=== PATIENT | male | born 1990 | race African-American/Black ===

== ENCOUNTER 2018-08-11 16:57 | Emergency (ER) | payer SELFPAY ==
[2018-08-11] MEDS ORDERED: DIPH/PERTUSS(ACELL)/TETANUS VAC/PF 0.5 ML SYR (>=10YO) IM ONE (17:15)
[2018-08-11] MEDS ORDERED: MORPHINE SULFATE 10 MG/ML INJ IM ONE (17:20)
--- NOTE | 2018-08-11 17:27 | ER Document Report ---
ED General - General Chief Complaint: Finger Injury Stated Complaint: LEFT HAND INJURY Time Seen by Provider: 08/11/18 17:20 Mode of Arrival: Ambulatory Information source: Patient Notes: 28-year-old male presents with partial amputation of his left index finger after getting it closed in a door just prior to arrival. Tetanus unknown. Patient is right-handed. TRAVEL OUTSIDE OF THE [place] IN LAST 30 DAYS: No - HPI Onset: Just prior to arrival Onset/Duration: Sudden Quality of pain: Throbbing Severity: Severe Associated symptoms: None Exacerbated by: Movement Relieved by: Denies Similar symptoms previously: No Recently seen / treated by doctor: No - Related Data Allergies/Adverse Reactions: No Known Allergies Allergy (Verified 07/15/15 10:29) Past Medical History - General Information source: Patient - Social History Smoking Status: Current Every Day Smoker Cigarette use (# per day): Yes - 2 Frequency of alcohol use: None Drug Abuse: None Lives with: Family Family History: CAD, Hyperlipidemia, Hypertension Patient has suicidal ideation: No Patient has homicidal ideation: No - Medical History Medical History: Negative - Immunizations Immunizations up to date: No Hx Diphtheria, Pertussis, Tetanus Vaccination: No Review of Systems - Review of Systems Notes: REVIEW OF SYSTEMS: CONSTITUTIONAL : Denies fever, chills, or sweats. Denies recent illness. Denies weight loss, recent hospitalizations. EENT: Denies visual changes, eye pain. Denies sore throat, oral lesions, difficulty swallowing. CARDIOVASCULAR: Denies chest pain. Denies palpitations. Denies lower extremity edema. RESPIRATORY: Denies cough. Denies shortness of breath, wheezing. GASTROINTESTINAL: Denies abdominal pain or distention. Denies nausea, vomiting, or diarrhea. Denies blood in vomitus, stools, or per rectum. Denies black, tarry stools. Denies constipation. GENITOURINARY: Denies difficulty urinating, painful urination, frequency, blood in urine, testicular pain or penile discharge. MUSCULOSKELETAL: Denies back or neck pain or stiffness. Denies joint pain or swelling. SKIN: Denies rash, lesions or sores. HEMATOLOGIC : Denies easy bruising or bleeding. LYMPHATIC: Denies swollen glands. NEUROLOGICAL: Denies confusion or altered mental status. Denies loss of consciousness. Denies dizziness or lightheadedness. Denies headache. Denies weakness or paralysis. Denies problems difficulty with ambulation, slurred speech. Denies sensory loss, numbness, or tingling. Denies seizures. PSYCHIATRIC: Denies anxiety or stress. Denies depression, suicidal ideation, or Physical Exam - Vital signs Vitals: Temp Pulse Resp BP Pulse Ox 98.0 F 82 16 116/67 100 08/11/18 17:09 08/11/18 17:09 08/11/18 17:09 08/11/18 17:09 08/11/18 17:09 - Notes Notes: PHYSICAL EXAMINATION: GENERAL: Appears to be in significant pain. HEAD: Atraumatic, normocephalic. EYES: Pupils equal round and reactive to light, extraocular movements intact, sclera anicteric, conjunctiva are normal. ENT: Nares patent, oropharynx clear without exudates. Moist mucous membranes. NECK: Normal range of motion, supple without lymphadenopathy LUNGS: Breath sounds clear to auscultation bilaterally and equal. No wheezes rales or rhonchi. HEART: Regular rate and rhythm without murmurs ABDOMEN: Soft, nontender, nondistended abdomen. No guarding, no rebound. No masses appreciated. Musculoskeletal: Normal range of motion, no pitting or edema. No cyanosis. Left index finger-partial amputation of the distal phalanx with contused tissue, bone and tendon exposure. Sensation intact. NEUROLOGICAL: Cranial nerves grossly intact. Normal speech, normal gait. Normal sensory, motor exams PSYCH: Normal mood, normal affect. SKIN: Mangled, contused tissue of the left index finger. Course - Re-evaluation Re-evalutation: Hand X-Ray 08/11/18 17:14 IMPRESSION: Partial amputation of the distal left 2nd finger tip with absence of the distal tuft, 2nd finger distal phalanx. Temp Pulse Resp BP Pulse Ox 98.4 F 61 20 150/71 H 99 08/11/18 19:48 08/11/18 19:48 08/11/18 19:48 08/11/18 19:48 08/11/18 19:48 28-year-old male presents with a left finger laceration after having his finger closed into a door just prior to arrival. Vital signs reviewed upon arrival. Previous medical records and nursing notes reviewed. Patient does not appear toxic but he does appear to be in significant pain. X-ray obtained and showed partial amputation of the distal second finger right with absence of the distal tuft. 08/11/18 17:27 Dr. Childs contacted for consult. 08/11/18 17:31 Dr. Chilsd recommends Xeroform, compressive dressing and follow-up in the office on Tuesday. 08/11/18 19:14 Finger block of the left second digit was performed and wound was thoroughly irrigated with Betadine and 1 L of normal saline. Patient did receive Ancef, tetanus. Patient also placed in a finger splint. Patient be discharged home with Keflex and pain medication. Wound care instructions discussed with patient and family members. Patient was evaluated and treated as appropriate for the patient's presenting symptoms and complaint, with consideration of any critical or life threatening conditions that may be associated with their obtained history and exam as noted above. All results were discussed with patient and his family members.. Patient provided the opportunity to ask questions, and express concerns. Patient was educated on treatments based on their presumed diagnosis as noted above. At this time we will discharge the patient with return precautions and follow-up recommendations. Verbal discharge instructions given a the bedside. Medication warnings reviewed. Patient is in agreement with this plan and has verbalized understanding of return precautions. After careful consideration I feel that that patient can be safely discharged from the emergency department, they were advised to followup with a primary care physician in 2-3 days. Dictation on this chart was performed using voice recognition software and may result in unintended grammatical, spelling, syntax or errors. 08/11/18 23:29 - Vital Signs Vital signs: Temp Pulse Resp BP Pulse Ox 98.4 F 61 20 150/71 H 99 08/11/18 19:48 08/11/18 19:48 08/11/18 19:48 08/11/18 19:48 08/11/18 19:48 - Diagnostic Test Radiology reviewed: Image reviewed, Reports reviewed Procedures - Laceration/Wound Repair Left 2nd digit Time completed: 19:16 Wound length (cm): 3 Wound's Depth, Shape: Nail-avulsed, Contused tissue Laceration pre-procedure: Sterile PPE donned, Betadine prep applied Anesthetic type: 1% Lidocaine Volume Anesthetic (mLs): 5 - Digital block performed Wound explored: Clean, No foreign body removed Irrigated w/ Saline (mLs): 1,000 Wound Debrided: Minimal Wound Repaired With: Other - Quick clot, Xeroform and compressive bandage placed. Post-procedure NV exam normal: Yes Complications: No Hands back picture: 1 - Mangled tissue, bone exposure, sensation intact Critical Care Note - Critical Care Note Total time excluding time spent on procedures (mins): 35 - Minutes of critical care time spent in direct contact evaluating and reevaluating the patient, treating symptoms, reviewing labs and studies and speaking with family and consultants excluding any procedures Discharge - Discharge Clinical Impression: Partial traumatic transphalangeal amputation of left index finger Qualifiers: Encounter type: initial encounter Qualified Code(s): S68.621A - Partial traumatic transphalangeal amputation of left index finger, initial encounter Condition: Good Disposition: HOME, SELF-CARE Instructions: Fractured Finger ([facility]) Additional Instructions: You have a partial amputation of your left index finger. Please keep the dressing in place until you are seen by orthopedic surgery on Tuesday. Please elevate your arm and ice the area whenever possible. Please take your antibiotics and pain medication as prescribed. Prescriptions: Cephalexin Monohydrate [Keflex 500 mg Capsule] 500 mg PO BID 5 Days #10 capsule Oxycodone HCl/Acetaminophen [Percocet 5-325 mg Tablet] 1 tab PO Q6H PRN #20 tablet PRN Reason: Forms: Return to Work, Elevated Blood Pressure Referrals: REDD CHILDS MD [ACTIVE STAFF] - 08/14/18
[2018-08-11] MEDS ORDERED: LIDOCAINE 1% INJ (10 MG/ML) 10 ML MDV INJ ONE (17:31)
--- NOTE | 2018-08-11 17:50 | RADIOLOGY REPORT (SQ) ---
EXAM DESCRIPTION: HAND LEFT 3 VIEWS COMPLETED DATE/TIME: 08/11/2018 5:38 pm REASON FOR STUDY: finger amputation COMPARISON: None. EXAM PARAMETERS: NUMBER OF VIEWS: Three views. TECHNIQUE: AP, lateral and oblique radiographic images acquired of the left hand. LIMITATIONS: None. FINDINGS: MINERALIZATION: Normal. BONES: Partial amputation of the distal left 2nd finger tip with absence of the distal tuft, 2nd fing er distal phalanx. No worrisome bone lesions. JOINTS: No effusions. SOFT TISSUES: Partial soft tissue amputation of the distal left 2nd finger tip. No retained radiopaq ue foreign body. OTHER: No other significant finding. IMPRESSION: Partial amputation of the distal left 2nd finger tip with absence of the distal tuft, 2n d finger distal phalanx. TECHNICAL DOCUMENTATION: JOB ID: [id number] [employer]- All Rights Reserved Reading location - IP/workstation name: [email or web address]
[2018-08-11] MEDS ORDERED: LIDOCAINE 1% INJ-PF (10 MG/ML) 30 ML SDV ONE (18:48)
[2018-08-11] MEDS ORDERED: CEPHALEXIN 500 MG CAPSULE PO ONE (19:20)
[2018-08-11] MEDS ORDERED: OXYCODONE-ACETAMINOPHEN 5-325 MG TABLET PO ONE (19:20)
[2018-08-11 19:49] VITALS: BP 150/71
== END 2018-08-11 19:40 | disposition home or self-care (01) ==
LOC: ER 16:57
DX: S68.621A Partial traumatic transphalangeal amputation of left index finger, initial encounter (principal); W23.0XXA Caught, crushed, jammed, or pinched between moving objects, initial encounter; Y92.009 Unspecified place in unspecified non-institutional (private) residence as the place of occurrence of the external cause; F17.210 Nicotine dependence, cigarettes, uncomplicated; Z23 Encounter for immunization
CPT/HCPCS: 99285; 96372; 90471; 73130; 90715; 64450; J2270

== ENCOUNTER 2018-08-13 13:46 | Emergency (ER) | payer SELFPAY ==
[2018-08-13] MEDS ORDERED: LIDOCAINE 1% INJ-PF (10 MG/ML) 30 ML SDV INJ ONE (15:36)
[2018-08-13] MEDS ORDERED: CEFTRIAXONE INJ 1000 MG VIAL IM ONE (15:36)
[2018-08-13] MEDS ORDERED: MORPHINE SULFATE 10 MG/ML INJ IM ONE (16:31)
--- NOTE | 2018-08-13 17:46 | ER Document Report ---
ED Hand/Wrist Injury - General Mode of Arrival: Ambulatory TRAVEL OUTSIDE OF THE [place] IN LAST 30 DAYS: No - HPI Injury to: Index finger - Left Onset: Other - 2 days ago Where: Home Timing: Still present Quality of pain: Throbbing Severity: Severe Pain Level: 5 Context: Other - Being was traumatically amputated 2 days ago - General Chief Complaint: Finger Injury Stated Complaint: LEFT FINGER PAIN Time Seen by Provider: 08/13/18 15:06 Notes: 28-year-old male presented to ED for complaint of pain to his left index finger after injuring his finger 2 days ago. He states his end of his finger was cut off after it was slammed in a door 2 days ago. He was seen by Dr. Wells and discharged home with a sterile dressing on and prescriptions for Keflex and oxycodone. He states he never filled his prescriptions and the first he stated he had not changed his dressing as he was told not to. After I discussed it with him he said no as soon as he got home that night he took the dressing off and put a paper towel on it and now he was concerned that it was going to get infected as it was very painful. He is alert and oriented respirations regular and unlabored speaking in full sentences. He is here with a friend who will drive. (NERISSA SHARMA) - Related Data Allergies/Adverse Reactions: No Known Allergies Allergy (Verified 08/13/18 13:49) Past Medical History - General Information source: Patient - Social History Smoking Status: Current Every Day Smoker Cigarette use (# per day): Yes - 2 or 3 a day Chew tobacco use (# tins/day): No Smoking Education Provided: Yes - 4 minutes Frequency of alcohol use: None Drug Abuse: None Lives with: Family Family History: CAD, Hyperlipidemia, Hypertension Patient has suicidal ideation: No Patient has homicidal ideation: No - Past Medical History Cardiac Medical History: Reports: None Pulmonary Medical History: Reports: None EENT Medical History: Reports: None Neurological Medical History: Reports: None Endocrine Medical History: Reports: None Renal/ Medical History: Reports: None Malignancy Medical History: Reports None GI Medical History: Reports: None Musculoskeletal Medical History: Reports Other - Traumatic amputation of left distal index finger 2 days ago Skin Medical History: Reports None Psychiatric Medical History: Reports: None Traumatic Medical History: Reports: Hx Fractures - Traumatic amputation of the left index finger distal in Infectious Medical History: Reports: None Surgical Hx: Negative Past Surgical History: Reports: None Review of Systems - Review of Systems Constitutional: No symptoms reported EENT: No symptoms reported Cardiovascular: No symptoms reported Respiratory: No symptoms reported Gastrointestinal: No symptoms reported Genitourinary: No symptoms reported Male Genitourinary: No symptoms reported Musculoskeletal: Other - Traumatically amputated distal left index finger with mangled skin and bone visible Skin: Other - Open mangled distal fifth finger on left hand with bone exposure after dressing removed Hematologic/Lymphatic: No symptoms reported Neurological/Psychological: No symptoms reported -: Yes All other systems reviewed and negative Physical Exam - Vital signs Interpretation: Normal - General General appearance: Appears well, Alert - HEENT Head: Normocephalic, Atraumatic Eyes: Normal Pupils: PERRL - Respiratory Respiratory status: No respiratory distress Chest status: Nontender Breath sounds: Normal Chest palpation: Normal - Cardiovascular Rhythm: Regular Heart sounds: Normal auscultation Murmur: No - Abdominal Inspection: Normal Distension: No distension Bowel sounds: Normal Tenderness: Nontender Organomegaly: No organomegaly - Back Back: Normal, Nontender - Extremities General upper extremity: Normal ROM, Normal temperature General lower extremity: Normal inspection, Nontender, Normal color, Normal ROM, Normal temperature, Normal weight bearing. No: Romie's sign Shoulder: Normal, Nontender Arm: Normal, Nontender Elbow: Normal, Nontender Forearm: Normal, Nontender Wrist: Normal, Nontender Hand: No evidence of human bite, No evidence of FB, Other - Traumatic amputation to the distal phalanx of the left index finger with mangled contused skin and bone and tendon exposure after paper towel was soaked in warm soapy water to loosen it enough to remove it. - Neurological Neuro grossly intact: Yes Cognition: Normal Orientation: AAOx4 Benita Coma Scale Eye Opening: Spontaneous Benita Coma Scale Verbal: Oriented Benita Coma Scale Motor: Obeys Commands Benita Coma Scale Total: 15 Speech: Normal Motor strength normal: LUE, RUE, LLE, RLE Sensory: Normal - Psychological Associated symptoms: Normal affect, Normal mood - Skin Skin Temperature: Warm Skin Moisture: Dry Skin Color: Normal - Vital signs Vitals: Temp Pulse Resp BP Pulse Ox 98.6 F 82 18 158/91 H 96 08/13/18 13:50 08/13/18 13:50 08/13/18 13:50 08/13/18 13:50 08/13/18 13:50 Course - Re-evaluation Re-evalutation: 08/13/18 20:51 I went in and examined this young man and he had a paper towel wrapped around his left index finger where he had traumatically amputated it 2 days before. He states he came in here and was seen by the provider and when he went home he took the off the dressing that is been placed on it in the emergency room, he states he knows he was told not to remove it, but he thought he needed to so he removed it, and placed a paper towel on the end of his finger. He states he did not feel the antibiotics or the pain medicine because he did not think he would need. He states his pain has gotten worse so he became scared and came back to the emergency room. In order to treat this finger I medicated the patient with morphine IM and soaked his finger in warm soapy water. When I removed the dressing there was mangled contused skin that was red with tendons and bone exposure to the distal phalanx of the left index finger. I went over and spoke to Dr. Wells who had seen the patient 2 days ago I explained to her that the patient had taken her dressing off and put paper towel on I had soaked it in warm water and was able to get the paper towel off and what the skin looked like. She came over and examined the hand and then stated that I should call [place] again as the patient had taken the dressing off. At [address] Goff and he stated that he had not been called about her finger and he did not know anything about a finger being contused or amputated but if it was amputated 2 days ago and the patient had lasted this long he can wait till 8:00 in the morning at which time he should come to the [facility] for surgery and be examined. I explained to him that the patient had taken the dressing off and it put paper towels on it and and not filled his antibiotics or his pain medicine and I did not feel he was a good risk to send home. He stated that he was not coming in to see this patient this patient did not seek need to be seen tonight and that I could send him home. I called Dr. Gibbons the claim review medical director concerning this incident to find out what my next step was as he refused to come in and was denying that Dr. Wells had even consulted him. She stated that I needed to call him again and have him come in and see the patient. I consulted Dr. Goff again at 1702 at which time he stated he was not coming in to see this patient and he did not need to come in and see this patient I explained to him that I spoken with the claim review medical director and with Dr. Wells who both had wanted him to come in and see the patient. He stated he wanted to speak with Dr. Gibbons I informed him that Dr. Gibbons was at home and at Dr. Wells was here. He stated he wanted to speak with Dr. Wells. I called Dr. Wells over to the phone to speak with him. After he had conversed with Dr. Wells, Dr. Wells stated that I should put the bacitracin Xeroform Telfa and gauze back on his finger and have the patient come to [facility] for surgery tomorrow at 8:00. She stated that Dr. Goff had guaranteed the patient would be seen tomorrow morning at 8:00. I explained to her my concerns that he was not going to follow-up as he had not filled the prescriptions for the antibiotics and pain medicine. She went in and conversed with the patient and reiterated my instructions that he was to be at the orthopedics office at 8:00 AM. His finger was dressed with bacitracin Telfa pad Kerlix Georgie and tape. He did verbalize that he would definitely be at the orthopedics office at 8 AM in the morning as he had been instructed. Patient stated he would go straight from the emergency room to the pharmacy and get his antibiotics and his pain medicine. Patient was discharged home and was able to verbalize again all the instructions he had been given. (NERISSA SHARMA) 08/14/18 00:17 I was asked to see the patient by the nurse practitioner since I saw him 2 days prior to arrival. Patient did not follow my instructions of leaving the bandage in place and filling his pain medication and antibiotics. Dr. Goff was called and stated that I never spoke to him regarding the patient's left index finger amputation. I spoke to Dr. Goff and explained to him that I absolutely did speak to him and stated back the questions that he asked me that day which were was there bone exposure which I stated yes and if there was avulsion and mangled tissue which I also stated yes. Dr. Goff stated that he was having a "senior moment". He asked if this finger looked any different than when it did on Tuesday and I stated no. He asked me why I thought he needed to come into the emergency department and see the patient and I explained to him that it was concerning to me that he does not recall our conversation regarding the finger amputation and I am concerned for patient follow-up. He assured me that the patient will be seen tomorrow morning in his office at 8 AM. I reiterated to the patient the importance of being seen tomorrow, filling his antibiotics and pain medication and leaving the dressing in place. Patient repeated back what I stated to him and expressed understanding. Patient was given pain medication and Rocephin in the department. Patient discharged home with strict instructions to be seen tomorrow morning at [address] Goff's office. He states that he has no problems with transportation. (MARIA T WELLS) - Vital Signs Vital signs: Temp Pulse Resp BP Pulse Ox 98.6 F 79 18 155/90 H 97 08/13/18 13:50 08/13/18 18:07 08/13/18 18:07 08/13/18 18:07 08/13/18 18:07 Discharge - Discharge Clinical Impression: Partial traumatic transphalangeal amputation of left index finger Qualifiers: Encounter type: subsequent encounter Qualified Code(s): S68.621D - Partial traumatic transphalangeal amputation of left index finger, subsequent encounter Disposition: HOME, SELF-CARE Additional Instructions: You have traumatically amputated the end of your finger. You need to go to the pharmacy as soon as you leave the emergency room and get your prescription for your antibiotics for your finger. You need to take a dose before you go to bed tonight of the antibiotic You also need to fill your pain medicine so that you can control your pain for this finger. It is very important that you go to the orthopedic appointment tomorrow morning at 8:00 be at the office at 8:00. Be sure to tell the office that you were sent from the emergency room and the provider's talked with Dr. Goff and he needs to see you tomorrow. You need to be seen tomorrow. Rocephin You have been given an injection of an antibiotic called Rocephin (ceftriaxone). Sometimes the injection must be combined with antibiotic pills. For some infections, such as an uncomplicated ear infection, Rocephin provides all the antibiotic that's needed. The antibiotic will be in your body for about two days. For serious infections, we usually repeat doses of Rocephin daily. Side effects are very unusual following a shot. Women may develop vaginal yeast infections, and babies can get yeast (thrush) in the mouth following the use of antibiotics. Contact your physician if you have symptoms with this medication. Allergy to this antibiotic can result in hives, wheezing, faintness, or itching. If symptoms of allergy occur, call the doctor at once. Cephalexin The antibiotic you've been prescribed is a member of the cephalosporin class. This type of antibiotic covers a wide variety of infections, including those of the skin, lungs, and urinary tract. It's useful for staph infections. This antibiotic is slightly similar to the penicillin family. In rare cases, a person who is allergic to penicillin will also be allergic to this medication. If you have had a severe allergic reaction to penicillin, and have not taken this antibiotic since that time, notify your doctor. Antibiotics which cover many germs ("broad spectrum" antibiotics) are more likely to cause diarrhea or "yeast" infections. Women prone to vaginal yeast problems may suffer an attack after taking this antibiotic. In infants, oral thrush (white spots "stuck" on the cheek) or yeast diaper rash may result. See your doctor if these problems occur. Call at once if you develop itching, hives, shortness of breath, or lightheadedness. Oral Narcotic Medication You have been given a prescription for pain control. This medication is a narcotic. It's best taken with food, as nausea can result if taken on an empty stomach. Don't operate machinery or drive within six hours of taking this medication. Do not combine this medicine with alcohol, or with any medication which can cause sedation (such as cold tablets or sleeping pills) unless you get permission from the physician. Narcotics tend to cause constipation. If possible, drink plenty of fluids and eat a diet high in fiber and fruits. FOLLOW-UP CARE: If you have been referred to a physician for follow-up care, call the physicians office for an appointment as you were instructed or within the next two days. If you experience worsening or a significant change in your symptoms, notify the physician immediately or return to the Emergency Department at any time for re-evaluation. Forms: Elevated Blood Pressure, Smoking Cessation Education Referrals: REDD GOFF MD [ACTIVE STAFF] - Follow up tomorrow (8 AM in the morning to be at the doctor's office. Insist that they see you tomorrow. If they will not see you call back to the emergency room and let someone know that they have refused to see you and that the provider saw you today said to be there at 8:00.)
[2018-08-13 18:08] VITALS: BP 155/90
== END 2018-08-13 18:12 | disposition home or self-care (01) ==
LOC: ER 13:46
DX: S68.621A Partial traumatic transphalangeal amputation of left index finger, initial encounter (principal); W23.0XXA Caught, crushed, jammed, or pinched between moving objects, initial encounter; Y92.009 Unspecified place in unspecified non-institutional (private) residence as the place of occurrence of the external cause; T36.1X6A Underdosing of cephalosporins and other beta-lactam antibiotics, initial encounter; M79.645 Pain in left finger(s); T40.2X6A Underdosing of other opioids, initial encounter; Z91.128 Patient's intentional underdosing of medication regimen for other reason; Z91.19 Patient's noncompliance with other medical treatment and regimen; F17.210 Nicotine dependence, cigarettes, uncomplicated; Z71.6 Tobacco abuse counseling
CPT/HCPCS: 99406; 99283; 96372; J3490; J2270; J0696

== ENCOUNTER 2018-08-24 16:52 | Emergency (ER) | payer SELFPAY ==
[2018-08-24 17:10] VITALS: BP 124/56
[2018-08-24] MEDS ORDERED: CEPHALEXIN 500 MG CAPSULE PO ONE (17:39)
--- NOTE | 2018-08-24 17:40 | ER Document Report ---
HPI - HPI Patient complains to provider of: Medication refill Time Seen by Provider: 08/24/18 17:17 Quality of pain: Achy Pain Level: 5 Context: Patient states that he closed his finger in a door on August 11. Patient states that he was prescribed antibiotics and pain medication on August 11 but did not get them filled until August 13 because he was not certain that he needed the medications. Patient states that he partially amputated part of his left index finger. Patient states that he has seen the orthopedic hand surgeon since his discharge from the ER, although this was earlier in the week. Patient states that he is supposed to be on antibiotics and pain medicine but he is out of them and needs more today. Patient denies any new injury to the finger. Patient denies any fever. Patient states that he is getting weekly dressing changes at this time and is due to see his doctor on Tuesday. Associated Symptoms: Other - Left second finger pain. denies: Fever Exacerbated by: Movement Relieved by: Denies Similar symptoms previously: No Recently seen / treated by doctor: Yes - ROS ROS below otherwise negative: Yes Systems Reviewed and Negative: Yes All other systems reviewed and negative - CONSTITUTIONAL Constitutional: DENIES: Fever, Chills - REPRODUCTIVE Reproductive: DENIES: : - MUSCULOSKELETAL Musculoskeletal: REPORTS: Extremity pain - left index finger - DERM Notes: Open wound that is covered with a Tegaderm dressing to left second finger Past Medical History - General Information source: Patient - Social History Smoking Status: Never Smoker Chew tobacco use (# tins/day): No Frequency of alcohol use: None Drug Abuse: None Occupation: Foodservice Lives with: Family Family History: CAD, Hyperlipidemia, Hypertension Patient has suicidal ideation: No Patient has homicidal ideation: No - Medical History Medical History: Negative Renal/ Medical History: Denies: Hx Peritoneal Dialysis Traumatic Medical History: Reports: Hx Fractures - Traumatic amputation of the left index finger distal in Surgical Hx: Negative - Immunizations Immunizations up to date: No Hx Diphtheria, Pertussis, Tetanus Vaccination: No Vertical Provider Document - CONSTITUTIONAL Agree With Documented VS: Yes Exam Limitations: No Limitations General Appearance: WD/WN, No Apparent Distress - INFECTION CONTROL TRAVEL OUTSIDE OF THE [place] IN LAST 30 DAYS: No - HEENT HEENT: Atraumatic, Normocephalic - NECK Neck: Normal Inspection - RESPIRATORY Respiratory: No Respiratory Distress - CARDIOVASCULAR Pulses: Normal: Radial - MUSCULOSKELETAL/EXTREMETIES Musculoskeletal/Extremeties: MAAMANDA, FROM, Tender - Partially amputated left second finger, Tegaderm dressing in place, patient with exudative coverage of distal tip of finger, no obvious signs of infection, no erythema, no lymphangitis, no concern for tenosynovitis - NEURO Level of Consciousness: Awake, Alert, Appropriate Motor/Sensory: No Motor Deficit - DERM Integumentary: Warm, Dry Notes: Covered wound to left second fingertip, see above Course - Re-evaluation Re-evalutation: 08/24/18 Patient initially stated that he ran out of his antibiotic and his pain medication and that he did not have either of these medications. Review of the computer prescription list demonstrates that patient did in fact get a prescription for both Keflex and oxycodone that was filled and picked up on August 21. Review of controlled substance database demonstrates that patient did citrus picker prescription of oxycodone on August 21. When the patient was confronted with this information he did acknowledge that he had pain medication but that he was not taking it very much but he did have this medication at home. Patient states that he did not citrus picker the antibiotic and that it is really important that he gets this medication as he is worried about any possible infection to his finger. Again whenever patient was confronted with information that he did in fact pick this prescription up patient states that he wanted to call his aunt to confirm whether or not he had this medication at home. Provider called the pharmacy at [facility] and spoke with pharmacy staff who states that patient did citrus picker both the pain medication in the antibiotics at the same time and that they could see this in the transaction. Patient then states that his aunt states that his antibiotic is at home in a drawer. Patient states that he does not need anything further and is ready to be discharged. - Vital Signs Vital signs: Temp Pulse Resp BP Pulse Ox 99.2 F 92 16 124/56 L 97 08/24/18 17:08 08/24/18 17:08 08/24/18 17:08 08/24/18 17:08 08/24/18 17:08 Discharge - Discharge Clinical Impression: concern about medication refill Condition: Stable Disposition: HOME, SELF-CARE Additional Instructions: Return immediately for any new or worsening symptoms Followup with your primary care provider, call tomorrow to make a followup appointment Take your medications as you have at home as prescribed Follow-up with Dr. Calles, call his office tomorrow if you need to adjust your pain medications. Forms: Smoking Cessation Education Referrals: CHENG CALLES, DO [ACTIVE STAFF] - Follow up as needed
== END 2018-08-24 17:47 | disposition home or self-care (01) ==
LOC: ER 16:52
DX: Z76.0 Encounter for issue of repeat prescription (principal)
CPT/HCPCS: 99281

== ENCOUNTER 2018-09-16 14:59 | Emergency (ER) | payer SELFPAY ==
[2018-09-16 15:18] VITALS: BP 154/76
[2018-09-16] MEDS ORDERED: CEPHALEXIN 500 MG CAPSULE PO ONE (15:35)
--- NOTE | 2018-09-16 15:39 | ER Document Report ---
HPI - HPI Time Seen by Provider: 09/16/18 15:26 Pain Level: 4 Notes: Patient is a 28-year-old male who presents emergency department for wound dressing change to his left index finger. Patient states that he has been having trouble during the current bandage off because of the dried drainage. He is under the care of orthopedics otherwise and is scheduled for them in the next week or so. Denies drug allergies. He has not noticed any red streaks, purulence, or increased pain. No other concerns or complaints. Denies any headache, fever, neck pain, URI, sore throat, chest pain, palpitations, syncope, cough, shortness of breath, wheeze, dyspnea, abdominal pain, nausea/vomiting/diarrhea, urinary retention, dysuria, hematuria, numbness/tingling, muscle paralysis/weakness, or rash. - ROS Systems Reviewed and Negative: Yes All other systems reviewed and negative - REPRODUCTIVE Reproductive: DENIES: : Past Medical History - Social History Smoking Status: Current Every Day Smoker Family History: CAD, Hyperlipidemia, Hypertension Patient has suicidal ideation: No Patient has homicidal ideation: No Renal/ Medical History: Denies: Hx Peritoneal Dialysis Traumatic Medical History: Reports: Hx Fractures - Traumatic amputation of the left index finger distal in - Immunizations Immunizations up to date: No Hx Diphtheria, Pertussis, Tetanus Vaccination: No Vertical Provider Document - CONSTITUTIONAL Agree With Documented VS: Yes Notes: PHYSICAL EXAMINATION: GENERAL: Well-appearing, well-nourished and in no acute distress. LUNGS: Breath sounds clear to auscultation bilaterally and equal. No wheezes rales or rhonchi. HEART: Regular rate and rhythm without murmurs, rubs, gallops. Musculoskeletal: Left index finger: FROM to passive/active at PIP. Strength 5+/5. N/V intact distal. Extremities: No cyanosis, clubbing, or edema b/l. Peripheral pulses 2+. Capillary refill less than 3 seconds. NEUROLOGICAL: Cranial nerves grossly intact. Normal speech, normal gait. Normal sensory, motor exams PSYCH: Normal mood, normal affect. SKIN: left index: there is noted granular tissue and does appear to be healing appropriately. No purulence, significant erythema, warmth, streaks, or abscess. - INFECTION CONTROL TRAVEL OUTSIDE OF THE [place] IN LAST 30 DAYS: No Course - Re-evaluation Re-evalutation: 09/16/18 15:37 Wound dressing change performed today. Vitals acceptable. PE is otherwise unremarkable. Keep consult with your specialist Return to the ED with any other worsening/concerning symptoms as reviewed. Patient is in agreement. - Vital Signs Vital signs: Temp Pulse Resp BP Pulse Ox 98.5 F 75 14 154/76 H 100 09/16/18 15:16 09/16/18 15:16 09/16/18 15:16 09/16/18 15:16 09/16/18 15:16 Discharge - Discharge Clinical Impression: Encounter for wound care Condition: Stable Disposition: HOME, SELF-CARE Additional Instructions: Keep the skin clean Wash with soap and water Tylenol/ibuprofen if needed Triple antibiotic ointment/wound dressing per your specialist. Take medication as directed Monitor for any worsening symptoms Recheck with your PCM in 3-5 days Keep consult with orthopedics as scheduled Return to the ED with any worsening symptoms and/or development of fever, headache, chest pain, palpitations, syncope, shortness of breath, trouble breathing, abdominal pain, n/v/d, abscess, purulent discharge, red streaks, worsening swelling, or other worsening symptoms that are concerning to you. Prescriptions: Cephalexin Monohydrate [Keflex 500 mg Capsule] 500 mg PO TID #12 capsule Forms: Elevated Blood Pressure, Smoking Cessation Education Referrals: CHENG CALLES DO [ACTIVE STAFF] - Follow up as needed
== END 2018-09-16 15:49 | disposition home or self-care (01) ==
LOC: ER 14:59
DX: Z48.01 Encounter for change or removal of surgical wound dressing (principal)
CPT/HCPCS: 99283

== ENCOUNTER 2018-09-21 16:31 | Emergency (ER) | payer SELFPAY ==
[2018-09-21 16:40] VITALS: BP 140/64
[2018-09-21] MEDS ORDERED: IBUPROFEN 800 MG TABLET PO ONE (17:04)
--- NOTE | 2018-09-21 17:08 | ER Document Report ---
HPI - HPI Patient complains to provider of: finger wound recheck Time Seen by Provider: 09/21/18 16:54 Onset: Other Onset/Duration: Persistent Quality of pain: Throbbing Severity: Severe Pain Level: 5 Context: Patient presents to the emergency department with complaints of left index finger for wound recheck. Patient reports that he has been treated for amputation of his left index finger tip. Patient is right-hand dominant. he reports several weeks ago his friend's girlfriend shut the door on his finger when she was mad. Since that time he has been seen at the surgery center for wound rechecks. He reports it throbs at night. He is here to make sure everything is okay. Denies fever vomiting diarrhea. No drainage from the area. Associated Symptoms: None Exacerbated by: Denies Relieved by: Denies Similar symptoms previously: No Recently seen / treated by doctor: No - REPRODUCTIVE Reproductive: DENIES: : Past Medical History - General Information source: Patient - Social History Smoking Status: Current Every Day Smoker Cigarette use (# per day): Yes Frequency of alcohol use: None Drug Abuse: None Occupation: [employer] Family History: CAD, Hyperlipidemia, Hypertension Patient has suicidal ideation: No Patient has homicidal ideation: No Renal/ Medical History: Denies: Hx Peritoneal Dialysis Traumatic Medical History: Reports: Hx Fractures - Traumatic amputation of the left index finger distal in Surgical Hx: Negative - Immunizations Immunizations up to date: No Hx Diphtheria, Pertussis, Tetanus Vaccination: No Vertical Provider Document - CONSTITUTIONAL Agree With Documented VS: Yes Exam Limitations: No Limitations General Appearance: WD/WN, No Apparent Distress - INFECTION CONTROL TRAVEL OUTSIDE OF THE [place] IN LAST 30 DAYS: No - HEENT HEENT: Atraumatic - NECK Neck: Supple - RESPIRATORY Respiratory: No Respiratory Distress - CARDIOVASCULAR Cardiovascular: Regular Rate - MUSCULOSKELETAL/EXTREMETIES Musculoskeletal/Extremeties: MAEW, FROM, Non-Tender - left finger index amputee slight open at the tip, no drainage no erythema/no warmth/ no swelling. FROM, no pain to palpation - NEURO Level of Consciousness: Awake, Alert, Appropriate Motor/Sensory: No Motor Deficit - DERM Integumentary: Warm, Dry Course - Re-evaluation Re-evalutation: 09/21/18 17:30 Patient instructed on signs and symptoms of infection. Patient was instructed to continue to go to the surgical center duration as scheduled. He was instructed on Motrin. Patient verbalized understanding to all instructions. Dictation of this chart was performed using voice recognition software; therefore, there may be some unintended grammatical errors. - Vital Signs Vital signs: Temp Pulse Resp BP Pulse Ox 97.9 F 93 15 140/64 H 98 09/21/18 16:39 09/21/18 16:39 09/21/18 16:39 09/21/18 16:39 09/21/18 16:39 Discharge - Discharge Clinical Impression: finger wound check Condition: Stable Disposition: HOME, SELF-CARE Instructions: Use of Soeh-Vgz-Mamxrah Ibuprofen ([facility]) Additional Instructions: *You have been treated for a wound recheck *Take ibuprofen as indicated for pain *Monitor the site for signs of infection such as increasing pain,redness, swelling, warmth *Keep the area clean *Follow up with wound care center as scheduled *Return to ED for signs of infection, worsening condition,changes, needs Monitor your blood pressure. Your blood pressure was elevated today. This may be because you were anxious, in pain or because you need medication. It is important to follow up with your primary care provider for full evaluation. Forms: Elevated Blood Pressure, Return to Work
== END 2018-09-21 17:41 | disposition home or self-care (01) ==
LOC: ER 16:31
DX: S68.621D Partial traumatic transphalangeal amputation of left index finger, subsequent encounter (principal); W23.0XXD Caught, crushed, jammed, or pinched between moving objects, subsequent encounter; F17.210 Nicotine dependence, cigarettes, uncomplicated
CPT/HCPCS: 99282

== ENCOUNTER 2018-09-30 19:07 | Emergency (ER) | payer SELFPAY ==
[2018-09-30 19:31] VITALS: BP 144/98
--- NOTE | 2018-09-30 20:03 | ER Document Report ---
ED Hand/Wrist Injury - General Chief Complaint: Finger Injury Stated Complaint: HAND PAIN Time Seen by Provider: 09/30/18 19:31 Primary Care Provider: ELVER BECKWITH MD [ACTIVE STAFF] - Follow up as needed CHENG CALLES DO [ACTIVE STAFF] - Follow up as needed Mode of Arrival: Ambulatory Information source: Patient Notes: 28-year-old male presented to ED for reassessment of his left index finger that he traumatically amputated about a month ago. He states he has been back to the ED several times to follow-up and his flexor tendon has slowly retracted over this period of time. He states he is also followed up with Dr. Calles several times. He stated he wanted to know if he needed antibiotics and if he needed any other treatment. Patient is alert oriented respirations regular and unlabored speaking in full sentences. There is no active infection to the finger there is retraction of the flexor tendon to this finger and he is unable to straighten the finger at this time. TRAVEL OUTSIDE OF THE [place] IN LAST 30 DAYS: No - HPI Injury to: Index finger Onset: Other - .Original injury 08/11/2018 when he caught his finger in a door traumatically amputating the distal portion of his distal phalanx of the left index finger. Where: Outdoors Timing: Better Quality of pain: Achy Pain Level: 4 Context: Other - Traumatic amputation 08/11/18, the actual amputation wound has healed now he has retraction of the flexor tendon. There is no signs of redness swelling or inflammation to the site - Related Data Allergies/Adverse Reactions: No Known Allergies Allergy (Verified 09/30/18 19:08) Past Medical History - General Information source: Patient - Social History Smoking Status: Current Every Day Smoker Cigarette use (# per day): Yes - 2-5 cigarettes a day Smoking Education Provided: Yes - Minutes Frequency of alcohol use: Social Drug Abuse: None Occupation: Works in a kitchen Lives with: Family Family History: CAD, Hyperlipidemia, Hypertension Patient has suicidal ideation: No Patient has homicidal ideation: No - Past Medical History Cardiac Medical History: Reports: None Pulmonary Medical History: Reports: None EENT Medical History: Reports: None Neurological Medical History: Reports: None Endocrine Medical History: Reports: None Renal/ Medical History: Reports: None Malignancy Medical History: Reports None Musculoskeletal Medical History: Reports Hx Musculoskeletal Deformity - Flexor tendon retraction of the left index finger, Reports Other - Traumatic amputation of the distal left index finger Skin Medical History: Reports None Psychiatric Medical History: Reports: None Traumatic Medical History: Reports: Hx Fractures - Traumatic amputation of the left index finger distal in Infectious Medical History: Reports: None Surgical Hx: Negative Past Surgical History: Reports: None - Immunizations Immunizations up to date: No Hx Diphtheria, Pertussis, Tetanus Vaccination: No Review of Systems - Review of Systems Constitutional: No symptoms reported EENT: No symptoms reported Cardiovascular: No symptoms reported Respiratory: No symptoms reported Gastrointestinal: No symptoms reported Genitourinary: No symptoms reported Male Genitourinary: No symptoms reported Musculoskeletal: No symptoms reported, Other - Left index finger tender and he states he is unable to straighten the finger anymore for the last 2-3 weeks Skin: No symptoms reported Hematologic/Lymphatic: No symptoms reported Neurological/Psychological: No symptoms reported Physical Exam - Vital signs Vitals: Temp Pulse Resp BP Pulse Ox 98.7 F 83 18 144/98 H 100 09/30/18 19:27 09/30/18 19:27 09/30/18 19:27 09/30/18 19:27 09/30/18 19:27 Interpretation: Normal - General General appearance: Appears well, Alert - HEENT Head: Normocephalic, Atraumatic Eyes: Normal Pupils: PERRL - Respiratory Respiratory status: No respiratory distress Chest status: Nontender Breath sounds: Normal Chest palpation: Normal - Cardiovascular Rhythm: Regular Heart sounds: Normal auscultation Murmur: No - Abdominal Inspection: Normal Distension: No distension Bowel sounds: Normal Tenderness: Nontender Organomegaly: No organomegaly - Back Back: Normal, Nontender - Extremities General upper extremity: Normal color, Normal temperature General lower extremity: Normal inspection, Nontender, Normal color, Normal ROM, Normal temperature, Normal weight bearing. No: Romie's sign Hand: Deformity, No evidence of human bite, No evidence of FB, Tendon deficit, Other - Traumatic amputation to the left index finger is healing well. Good granulation noted. Patient is unable to heat extend his left index finger.. No: Swelling - Neurological Neuro grossly intact: Yes Cognition: Normal Orientation: AAOx4 Benita Coma Scale Eye Opening: Spontaneous Lincoln Coma Scale Verbal: Oriented Benita Coma Scale Motor: Obeys Commands Lincoln Coma Scale Total: 15 Speech: Normal Motor strength normal: LUE, RUE, LLE, RLE Sensory: Normal - Psychological Associated symptoms: Normal affect, Normal mood - Skin Skin Temperature: Warm Skin Moisture: Dry Skin Color: Normal Course - Re-evaluation Re-evalutation: 09/30/18 21:[address] Botello concerning the inability of the patient to extend his left index finger. He came and examined the patient and gave patient instructions on exercising his left index finger and informed him it is really needed to follow- up with orthopedics to get full range of motion back of his finger. Patient states he has followed up to the ED and orthopedics several times since this injury. Patient instructed he does need to follow-up again due to his statement that this retraction is affecting his job. He verbalized understanding and agreement with treatment plan to follow-up with orthopedics and/or plastic surgery to determine if there was treatment that could/should be done to help straighten his finger back. - Vital Signs Vital signs: Temp Pulse Resp BP Pulse Ox 98.7 F 83 18 144/98 H 100 09/30/18 19:27 09/30/18 19:27 09/30/18 19:27 09/30/18 19:27 09/30/18 19:27 Discharge - Discharge Clinical Impression: Left index finger tendon retraction Condition: Stable Disposition: HOME, SELF-CARE Instructions: Family Physicians / Practices Additional Instructions: You were seen today for retraction of the left index finger flexor tendon retraction after your traumatic amputation of the end of your left index finger a month ago. Your traumatic amputation is healing well it does not show any signs or symptoms of any infection or any other problems. You do need to follow-up with the hand surgeon concerning the retraction of your flexor tendon as you state this is interfering with your occupation. I have had Dr. Botello the emergency room MD come and look at your hand and he agreed that you should follow-up with a hand surgeon or a plastic surgeon concerning this tendon retraction. As he explained to you please try to gently stretch this tendon 2-3 times a day every day between now and when you can follow-up. Acetaminophen Acetaminophen may be taken for pain relief or fever control. It's much safer than aspirin, offering a wider range of "safe" dosages. It is safe during . Some brand names are Tylenol, Panadol, Datril, Anacin 3, Tempra, and Liquiprin. Acetaminophen can be repeated every four hours. The following are maximum recommended dosages: WEIGHT Dose Drops Elixir Chewable(80mg) (LBS.) drprs=droppers tsp=teaspoon 6 40 mg .4 ml (1/2) 6-11 80 mg .8 ml (full) 1/2 tsp 1 tab 12-16 120 mg 1 1/2 drprs 3/4 tsp 1 1/2 tabs 17-23 160 mg 2 drprs 1 tsp 2 tabs 24-30 240 mg 3 drprs 1 1/2 tsp 3 tabs 30-35 320 mg 2 tsp 4 tabs 36-41 360 mg 2 1/4 tsp 4 1/2 tabs 42-47 400 mg 2 1/2 tsp 5 tabs 48-53 480 mg 3 tsp 6 tabs 54-59 520 mg 3 1/4 tsp 6 1/2 tabs 60-64 560 mg 3 1/2 tsp 7 tabs 65-70 600 mg 3 3/4 tsp 7 1/2 tabs 71-76 640 mg 4 tsp 8 tabs 77-82 720 mg 4 1/2 tsp 9 tabs 83-88 800 mg 5 tsp 10 tabs >89 pounds or adults 650 mg to 900 mg Acetaminophen can be repeated every four hours. Maximum daily dose not to exceed 4000 mg. These maximum recommended dosages are slightly higher than the dosages writte n on the product container, but these dosages are very safe and well below the toxic dosage for acetaminophen. Ibuprofen Ibuprofen is an excellent, safe drug for pain control. In addition, it has potent antiinflammatory effects which are beneficial, especially in the treatment of injuries, arthritis, or tendonitis. It's best to take ibuprofen with food. Persons with ulcer disease or allergy to aspirin should notify their physician of this before taking ibuprofen. Take the medication exactly as prescribed. Don't take additional doses unless instructed to do so by your doctor. If you develop wheezing, shortness of breath, hives, faintness, stomach pain, vomiting, or dark black stools, return for re-evaluation at once. FOLLOW-UP CARE: If you have been referred to a physician for follow-up care, call the physicians office for an appointment as you were instructed or within the next two days. If you experience worsening or a significant change in your symptoms, notify the physician immediately or return to the Emergency Department at any time for re-evaluation. Forms: Elevated Blood Pressure, Special Work Note, Smoking Cessation Education, Return to Work Referrals: CHENG CALLES DO [ACTIVE STAFF] - Follow up as needed ELVER BECKWITH MD [ACTIVE STAFF] - Follow up as needed
--- NOTE | 2018-10-01 10:04 | ER Document Report ---
Doctor's Note Notes: I personally and independently obtained patient history and examined the patient in conjunction with the APC and agree with the assessment, treatment plan and disposition of the patient as recorded by the APC, and have reviewed the APC's note. HISTORY OF PRESENT ILLNESS: Patient is a 28-year-old male that presents to the emergency department for chief complaint of left index finger pain. Patient reports that he had a soft tissue amputation of the distal portion of his finger over a week ago, was seen in the ED at that time, and follow-up with orthopedic surgery, they advised no further treatment, it has been healing well, denies any drainage. However his index finger is now more flexed, he had a hard time straightening it as a result, is not more swollen, and has not had any fevers. ROS: Constitutional: Negative for fever. Cardiovascular: Negative for chest pain. Respiratory: Negative for shortness of breath. Gastrointestinal: Negative for vomiting or abdominal pain Musculoskeletal: Negative for arm, leg or back pain Skin: Negative for rash. Neurological: Negative for weakness or numbness. Other than noted above, the 12 point review of systems was reviewed with the patient and were negative, all pertinent findings are included in the HPI. PHYSICAL EXAMINATION: Vital signs reviewed, nursing noted reviewed. GENERAL: Well-appearing, well-nourished and in no acute distress. HEAD: Atraumatic, normocephalic. EYES: Eyes appear normal, conjunctiva are normal. ENT: nares patent, oropharynx clear without exudates. Moist mucous membranes. NECK: Normal range of motion, supple without lymphadenopathy LUNGS: Breath sounds clear to auscultation bilaterally and equal. No wheezes rales or rhonchi. HEART: Regular rate and rhythm without murmurs ABDOMEN: Soft, nontender, normoactive bowel sounds. No rebound, guarding, or rigidity. No masses appreciated. EXTREMITIES: The left index finger, is contracted in flexion, and is able to be extended to a degree, but there is resistance, there is no pain with passive extension, no circumferential edema or erythema, no tenderness along the flexor tendon. Evidence of recent soft tissue amputation, but is healing well, no drainage or bleeding. The rest of his extremity exam is grossly unremarkable. NEUROLOGICAL: No focal neurological deficits. Moves all extremities spontaneously Motor and sensory grossly intact on exam. PSYCH: Normal mood, normal affect. SKIN: Warm, Dry, normal turgor, no rashes or lesions noted on exposed skin MEDICAL DECISION MAKING: Patient seen and examined, vital signs reviewed, patient appears well, no concerning signs for flexor tenosynovitis, I believe the patient suffering from flexor tendon profundus contraction as a result of the distal finger amputation, advised gentle stretching over the next several days and follow-up with orthopedic surgery, as this may become permanent for him, and may require surgery if needed, patient was agreeable and discharged. Please review detail APC documentation. *Note is created using voice recognition software and may contain spelling, syntax or grammatical errors.
== END 2018-09-30 20:18 | disposition home or self-care (01) ==
LOC: ER 19:07
DX: S68.621D Partial traumatic transphalangeal amputation of left index finger, subsequent encounter (principal); X58.XXXD Exposure to other specified factors, subsequent encounter; F17.210 Nicotine dependence, cigarettes, uncomplicated; Z71.6 Tobacco abuse counseling
CPT/HCPCS: 99283

== ENCOUNTER 2019-02-08 14:05 | Emergency (ER) | payer SELFPAY ==
[2019-02-08 14:13] VITALS: BP 152/80
--- NOTE | 2019-02-08 14:33 | ER Document Report ---
HPI - HPI Patient complains to provider of: wound recheck Time Seen by Provider: 02/08/19 14:28 Onset: Other - Up 4 months Onset/Duration: Better Quality of pain: Achy Severity: Moderate Pain Level: 3 Context: 28-year-old male was returned to the ED to have his index removed examined. He injured it about 4 months ago when he had a skin avulsion with a fracture. He states he followed up with the neuroscience specialist. He states he just want to make sure everything was healing okay now. There is no openings there is no drainage there is no redness there is no anything that needs to be addressed at this time. Associated Symptoms: Other - Keep Exacerbated by: Denies Relieved by: Denies Similar symptoms previously: Yes Recently seen / treated by doctor: Yes - ROS ROS below otherwise negative: Yes - CONSTITUTIONAL Constitutional: DENIES: Fever, Chills - EENT EENT: DENIES: Sore Throat, Ear Pain, Nasal Drainage-Clear, Nasal Drainage- Purulent, Congestion, Eye problems - NEURO Neurology: DENIES: Headache, Weakness, Vision blurred, Dizzinesss / Vertigo - CARDIOVASCULAR Cardiovascular: DENIES: Chest pain - RESPIRATORY Respiratory: DENIES: Trouble Breathing, Coughing - GASTROINTESTINAL Gastrointestinal: DENIES: Abdominal Pain, Nausea, Patient vomiting, Diarrhea, Constipation, Black / Bloody Stools - URINARY Urinary: DENIES: Dysuria, Urgency, Frequency - REPRODUCTIVE Reproductive: DENIES: :, Postmenopausal, Abnormal bleeding / discharge - MUSCULOSKELETAL Musculoskeletal: REPORTS: Extremity pain - left index finger - DERM Skin Color: Normal Skin Problems: None Past Medical History - General Information source: Patient - Social History Smoking Status: Current Every Day Smoker Chew tobacco use (# tins/day): No Frequency of alcohol use: Social Drug Abuse: None Family History: CAD, Hyperlipidemia, Hypertension Patient has suicidal ideation: No Patient has homicidal ideation: No - Past Medical History Cardiac Medical History: Reports: None Pulmonary Medical History: Reports: None EENT Medical History: Reports: None Neurological Medical History: Reports: None Endocrine Medical History: Reports: None Renal/ Medical History: Reports: None Malignancy Medical History: Reports None GI Medical History: Reports: None Musculoskeletal Medical History: Reports Hx Musculoskeletal Deformity - Flexor tendon retraction of the left index finger Skin Medical History: Reports None Psychiatric Medical History: Reports: None Traumatic Medical History: Reports: Hx Fractures - Traumatic amputation of the left index finger distal in Infectious Medical History: Reports: None Surgical Hx: Negative Past Surgical History: Reports: None - Immunizations Immunizations up to date: No Hx Diphtheria, Pertussis, Tetanus Vaccination: No Vertical Provider Document - CONSTITUTIONAL Agree With Documented VS: Yes Exam Limitations: No Limitations General Appearance: WD/WN, No Apparent Distress - INFECTION CONTROL TRAVEL OUTSIDE OF THE [place] IN LAST 30 DAYS: No - HEENT HEENT: Atraumatic, Normal ENT Exam, Normocephalic, PERRLA - NECK Neck: Normal Inspection, Supple, Thyroid Normal - RESPIRATORY Respiratory: Breath Sounds Normal, No Respiratory Distress - CARDIOVASCULAR Cardiovascular: Regular Rate, Regular Rhythm, No Murmur - GI/ABDOMEN Gastrointestinal: Abdomen Soft, Abdomen Non-Tender, No Organomegaly, Normal Bowel Sounds - REPRODUCTIVE Male Genitalia: Normal Inspection - BACK Back: Normal Inspection - MUSCULOSKELETAL/EXTREMETIES Musculoskeletal/Extremeties: MAEW, FROM, Tender - NEURO Level of Consciousness: Awake, Alert, Appropriate Motor/Sensory: No Motor Deficit, No Sensory Deficit, No Pronator Drift - DERM Integumentary: Warm, Dry, No Rash Course - Vital Signs Vital signs: Temp Pulse Resp BP Pulse Ox 98.5 F 92 16 152/80 H 97 02/08/19 14:11 02/08/19 14:11 02/08/19 14:11 02/08/19 14:11 02/08/19 14:11 Discharge - Discharge Clinical Impression: Recheck finger injury left index Condition: Stable Disposition: HOME, SELF-CARE Additional Instructions: There is no signs or symptoms of any infection or any other concerns at this time. Some Tylenol or Motrin for the discomfort you have an annual finger Please do not take Motrin at the same time that you were taken alcohol. Please be careful that you do not reinjure the finger. You have the name and number of the neuroscience specialist if you continue having pain follow-up with him again. FOLLOW-UP CARE: If you have been referred to a physician for follow-up care, call the physicians office for an appointment as you were instructed or within the next two days. If you experience worsening or a significant change in your symptoms, notify the physician immediately or return to the Emergency Department at any time for re-evaluation. Forms: Elevated Blood Pressure, Smoking Cessation Education, Return to Work Referrals: CHENG CALLES, [ACTIVE STAFF] - Follow up as needed
== END 2019-02-08 14:28 | disposition home or self-care (01) ==
LOC: ER 14:05
DX: T14.90XD Injury, unspecified, subsequent encounter (principal); X58.XXXD Exposure to other specified factors, subsequent encounter; F17.200 Nicotine dependence, unspecified, uncomplicated
CPT/HCPCS: 99283

== ENCOUNTER 2019-02-12 11:40 | Emergency (ER) | payer SELFPAY ==
[2019-02-12 11:51] VITALS: BP 156/84
--- NOTE | 2019-02-12 12:19 | ER Document Report ---
HPI - HPI Patient complains to provider of: Left second finger pain Time Seen by Provider: 02/12/19 12:04 Onset: Other - Several months Onset/Duration: Persistent Quality of pain: Achy Pain Level: 4 Context: Partial finger amputation several months ago after getting finger closed in a door. Patient states that he has had persistent left second fingertip pain and that his nail grows on and he has discomfort when he tries to trim his fingernail. Patient denies any acute injury. Patient states he was seen for this recently and needed a note for his employer. Patient states he only received a note for a single day but needed his work note extended. Associated Symptoms: Other. denies: Fever Exacerbated by: Movement Relieved by: Denies Similar symptoms previously: Yes Recently seen / treated by doctor: Yes - ROS ROS below otherwise negative: Yes Systems Reviewed and Negative: Yes All other systems reviewed and negative - CONSTITUTIONAL Constitutional: DENIES: Fever - NEURO Neurology: DENIES: Weakness - GASTROINTESTINAL Gastrointestinal: DENIES: Nausea - REPRODUCTIVE Reproductive: DENIES: : - MUSCULOSKELETAL Musculoskeletal: REPORTS: Extremity pain - left pointer finger. DENIES: Swelling - DERM Skin Color: Normal Skin Problems: None Past Medical History - General Information source: Patient - Social History Smoking Status: Current Every Day Smoker Smoking Education Provided: Yes Frequency of alcohol use: None Drug Abuse: None Occupation: Foodservice Family History: CAD, Hyperlipidemia, Hypertension Patient has suicidal ideation: No Patient has homicidal ideation: No Renal/ Medical History: Denies: Hx Peritoneal Dialysis Musculoskeletal Medical History: Reports Hx Musculoskeletal Deformity - Flexor tendon retraction of the left index finger Traumatic Medical History: Reports: Hx Fractures - Traumatic amputation of the left index finger distal in Past Surgical History: Reports: Hx Orthopedic Surgery - Immunizations Immunizations up to date: No Hx Diphtheria, Pertussis, Tetanus Vaccination: No Vertical Provider Document - CONSTITUTIONAL Agree With Documented VS: Yes Exam Limitations: No Limitations General Appearance: WD/WN, No Apparent Distress - INFECTION CONTROL TRAVEL OUTSIDE OF THE [place] IN LAST 30 DAYS: No - HEENT HEENT: Atraumatic, Normocephalic - NECK Neck: Normal Inspection - RESPIRATORY Respiratory: Breath Sounds Normal, No Respiratory Distress - CARDIOVASCULAR Cardiovascular: Regular Rate, Regular Rhythm Pulses: Normal: Radial - MUSCULOSKELETAL/EXTREMETIES Musculoskeletal/Extremeties: MAEW, Tender - left 2nd finger tip tenderness, nail misshapen from previous trauma. No swelling, no purulent drainage, No Edema. negative: Eccymosis - NEURO Level of Consciousness: Awake, Alert, Appropriate Motor/Sensory: No Motor Deficit - DERM Integumentary: Warm, Dry, No Rash Course - Re-evaluation Re-evalutation: 02/12/19 12:18 Patient encouraged to follow-up with orthopedic hand specialist for any persistent pain or problems involving the finger. - Vital Signs Vital signs: Temp Pulse Resp BP Pulse Ox 98.0 F 75 16 156/84 H 100 02/12/19 11:50 02/12/19 11:50 02/12/19 11:50 02/12/19 11:50 02/12/19 11:50 Discharge - Discharge Clinical Impression: chronic finger pain Condition: Stable Disposition: HOME, SELF-CARE Instructions: Chronic Pain Control ([facility]) Additional Instructions: Return immediately for any new or worsening symptoms Followup with your hand surgeon for recheck, call today for an appointment Forms: Return to Work Referrals: CHENG CALLES DO [ACTIVE STAFF] - Follow up as needed
== END 2019-02-12 12:24 | disposition home or self-care (01) ==
LOC: ER 11:40
DX: M79.645 Pain in left finger(s) (principal); G89.29 Other chronic pain; F17.200 Nicotine dependence, unspecified, uncomplicated; Z87.81 Personal history of (healed) traumatic fracture
CPT/HCPCS: 99283

== ENCOUNTER 2019-02-27 15:37 | Emergency (ER) | payer SELFPAY ==
--- NOTE | 2019-02-27 16:23 | ER Document Report ---
ED General - General Chief Complaint: Finger Injury Stated Complaint: LEFT HAND PAIN Time Seen by Provider: 02/27/19 16:16 Primary Care Provider: [facility] [Provider Group] - Follow up as needed TRAVEL OUTSIDE OF THE [place] IN LAST 30 DAYS: No - HPI Notes: 28 year old male to the ED with C/O left index pain that has been off and on since he injured it one month ago but worse since last night when he was playing basketball. States that he had forgotten about his finger when he went to go dunk the ball. States his finger caught the rim of the basketball hoop. States that the finger has been hurting since. He states one month ago he caught his finger in a door and amputated the distal portion of it. States that he was given antibiotics and was sent to see an orthopedist. States that they were monitoring the finger for any infection. He states he tried to see the orthopedist in the beginning of February but could not because he does not have insurance and cannot pay the bill. States that he not been taking anything for the finger. Denies any fevers, chills, significant swelling, new deformity, new laceration. He is right hand dominant. - Related Data Allergies/Adverse Reactions: No Known Allergies Allergy (Verified 02/27/19 15:38) Past Medical History - General Information source: Patient - Social History Smoking Status: Current Every Day Smoker Frequency of alcohol use: Occasional Drug Abuse: None Family History: CAD, Hyperlipidemia, Hypertension Renal/ Medical History: Denies: Hx Peritoneal Dialysis Musculoskeletal Medical History: Reports Hx Musculoskeletal Deformity - Flexor tendon retraction of the left index finger Traumatic Medical History: Reports: Hx Fractures - Traumatic amputation of the left index finger distal in Past Surgical History: Reports: Hx Orthopedic Surgery - Immunizations Immunizations up to date: No Hx Diphtheria, Pertussis, Tetanus Vaccination: No Review of Systems - Review of Systems Constitutional: No symptoms reported EENT: No symptoms reported Cardiovascular: denies: Chest pain, Palpitations, Dizziness, Lightheaded Respiratory: denies: Cough, Short of breath Gastrointestinal: denies: Abdominal pain, Diarrhea, Nausea, Vomiting Musculoskeletal: Joint pain - left index finger pain Skin: No symptoms reported Hematologic/Lymphatic: No symptoms reported Neurological/Psychological: No symptoms reported -: Yes All other systems reviewed and negative Physical Exam - Vital signs Vitals: Temp Pulse Resp BP Pulse Ox 98.4 F 74 16 144/81 H 96 02/27/19 15:59 02/27/19 15:59 02/27/19 15:59 02/27/19 15:59 02/27/19 15:59 Interpretation: Hypertensive - General General appearance: Appears well, Alert - HEENT Head: Normocephalic, Atraumatic Eyes: Normal Pupils: PERRL - Respiratory Respiratory status: No respiratory distress Chest status: Nontender Breath sounds: Normal Chest palpation: Normal - Cardiovascular Rhythm: Regular Heart sounds: Normal auscultation Murmur: No - Extremities Hand: Tender - to the left index finger there is noted scarring and healed wound to the pad of the finger. Noted nail which is deformed from prior finger injury. There is mild TTP over the pad of the finger. There is mild edema. There is no erythema or warmth, no circumferential edema to the finger, the finger is not stuck in flexion, and there is TTP along the flexor sheath. Patient has FROM in all fingers against resistance with 5/5 strength in flexion and extension testing both flexor tendons and extensor tendons. Cap refill is less than 2 sec throughout, radial pulses intact and equal - Neurological Neuro grossly intact: Yes Cognition: Normal Orientation: AAOx4 Alda Coma Scale Eye Opening: Spontaneous Alda Coma Scale Verbal: Oriented Alda Coma Scale Motor: Obeys Commands Alda Coma Scale Total: 15 Speech: Normal Motor strength normal: LUE, RUE, LLE, RLE Sensory: Normal - Psychological Associated symptoms: Normal affect, Normal mood - Skin Skin Temperature: Warm Skin Moisture: Dry Skin Color: Normal Course - Re-evaluation Re-evalutation: 02/27/19 16:51 Progress: patient declines XR with XR tech. States he does not want an XR and he would like a doctor's note and to be discharged. Plan will be to have patient follow with [facility]. Will write for Naprosyn for pain. Encouraged to return if worse. patient agrees with the plan. Impression: Left index finger injury -- likely mainly a strain of the finger given the mechanism of injury. Offered XR of the finger to evaluate for any bony abnormalities as he did break the finger when he injured it with the door. He has declined XR. Will discharge home with naprosyn. Noted elevated BP reading, discussed with patient and will have him follow with PCP for follow up and monitoring. Encouraged PCP follow up. - Vital Signs Vital signs: Temp Pulse Resp BP Pulse Ox 99.3 F 83 18 112/69 98 02/27/19 17:34 02/27/19 17:34 02/27/19 17:34 02/27/19 17:34 02/27/19 17:34 Discharge - Discharge Clinical Impression: Strain of finger of left hand, Elevated blood pressure reading Injury of left index finger Qualifiers: Encounter type: initial encounter Qualified Code(s): S69.92XA - Unspecified injury of left wrist, hand and finger(s), initial encounter Condition: Stable Disposition: HOME, SELF-CARE Instructions: High Blood Pressure ([facility]), Sprained Finger ([facility]) Additional Instructions: TAKE MEDICINES PRESCRIBED. VANESA TAPE THE FINGER FOR PROTECTION. MAY ICE THREE TIMES A DAY FOR 10 MINUTES. Noted ELEVATED BP -- PLAN TO HAVE PATIENT MONITORED VIA PCP AND HAVE ENCOURAGED HIM TO MAKE AN APPOINTMENT. HE AGREES WITH THE PLAN. Prescriptions: Naproxen [Naprosyn 250 mg Tablet] 250 mg PO BID #10 tablet Forms: Elevated Blood Pressure, Return to Work Referrals: [facility] [Provider Group] - Follow up as needed
[2019-02-27 17:35] VITALS: BP 112/69
== END 2019-02-27 17:35 | disposition home or self-care (01) ==
LOC: ER 15:37
DX: S69.92XA Unspecified injury of left wrist, hand and finger(s), initial encounter (principal); M25.542 Pain in joints of left hand; X58.XXXA Exposure to other specified factors, initial encounter; R03.0 Elevated blood-pressure reading, without diagnosis of hypertension; F17.200 Nicotine dependence, unspecified, uncomplicated
CPT/HCPCS: 99283

== ENCOUNTER 2019-07-06 00:24 | Emergency (ER) | payer SELFPAY ==
--- NOTE | 2019-07-06 03:03 | ER Document Report ---
HPI - HPI Time Seen by Provider: 07/06/19 02:17 Pain Level: 3 Notes: Patient is a 29-year-old male presenting to the emergency department with left index finger injury. He states several months ago his hand was slammed into a car door. He states that the tip of his finger had come off. He states that he still has limited range of motion and occasional throbbing in the finger. 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 Denies any new injury. - REPRODUCTIVE Reproductive: DENIES: : Past Medical History - General Information source: Patient - Social History Smoking Status: Never Smoker Frequency of alcohol use: None Drug Abuse: None Family History: CAD, Hyperlipidemia, Hypertension Patient has suicidal ideation: No Patient has homicidal ideation: No Renal/ Medical History: Denies: Hx Peritoneal Dialysis Musculoskeletal Medical History: Reports Hx Musculoskeletal Deformity - Flexor tendon retraction of the left index finger Traumatic Medical History: Reports: Hx Fractures - Traumatic amputation of the left index finger distal in Past Surgical History: Reports: Hx Orthopedic Surgery - Immunizations Immunizations up to date: No Hx Diphtheria, Pertussis, Tetanus Vaccination: No Vertical Provider Document - CONSTITUTIONAL Notes: PHYSICAL EXAMINATION: GENERAL: Well-appearing, well-nourished and in no acute distress. HEAD: Atraumatic, normocephalic. EYES: Pupils equal round extraocular movements intact, conjunctiva are normal. ENT: Nares patent NECK: Normal range of motion LUNGS: No respiratory distress Musculoskeletal: Limited range of motion at left index finger, strong radial pulse, cap refill less than 3 seconds. NEUROLOGICAL: Normal speech, normal gait. PSYCH: Normal mood, normal affect. SKIN: Warm, Dry, normal turgor, no rashes or lesions noted. - INFECTION CONTROL TRAVEL OUTSIDE OF THE [place] IN LAST 30 DAYS: No Course - Re-evaluation Re-evalutation: No new injuries, patient's complaint is chronic and has been going on for several months. Patient is limited range of motion to the left index finger which is where he had sustained a previous injury. He is requesting pain medications and a work note. Patient will be discharged home, encouraged follow-up with orthopedics of that he can be set up with physical therapy. The patient's emergency department workup and current diagnosis were explained to the patient and or family. Follow-up instructions were provided. Medications if prescribed were discussed. Instructions for when to return to the emergency department including specific worrisome symptoms were discussed with the patient and/or family. - Vital Signs Vital signs: Temp Pulse Resp BP Pulse Ox 97.7 F 64 20 155/86 H 96 07/06/19 00:38 07/06/19 00:38 07/06/19 00:38 07/06/19 00:38 07/06/19 00:38 Discharge - Discharge Clinical Impression: Finger pain, left Condition: Stable Disposition: HOME, SELF-CARE Additional Instructions: Please do the finger exercises that we discussed. This may help strengthen your finger from the previous injury that you had. Take medications as prescribed. Prescriptions: Naproxen [Naprosyn 375 Mg Tablet] 375 mg PO QID #30 tablet Forms: Return to Work
[2019-07-06 04:00] VITALS: BP 150/78
== END 2019-07-06 03:15 | disposition home or self-care (01) ==
LOC: ER 00:24
DX: M79.645 Pain in left finger(s) (principal)
CPT/HCPCS: 99283

== ENCOUNTER 2019-08-03 18:23 | Emergency (ER) | payer SELFPAY ==
[2019-08-03 18:52] VITALS: BP 159/100
--- NOTE | 2019-08-03 19:01 | ER Document Report ---
HPI - HPI Time Seen by Provider: 08/03/19 18:55 Pain Level: 3 Notes: Patient is a 29-year-old male no significant past medical history presents complaining of left upper lip injury when playing basketball yesterday. Patient states that he was elbowed in the lip and the tooth punctured the inside of his lip, but did not go all the way through. Patient has had a fat lip since then, but is otherwise able to eat and drink without difficulty. Denies drug allergies. No loss of consciousness. He has been acting behaving normally since then. Denies any headache, fever, neck pain, neck pain, changes in vision/speech/mentation/hearing, URI, sore throat, chest pain, palpitations, syncope, cough, shortness of breath, wheeze, dyspnea, abdominal pain, nausea/vomiting/diarrhea, urinary retention, dysuria, hematuria, loss of control of bowel or bladder, numbness/tingling, saddle anesthesia, muscle paralysis/weakness, or rash. 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 HEAD: Atraumatic, normocephalic. EYES: Pupils equal round and reactive to light, extraocular movements intact, sclera anicteric, conjunctiva are normal. ENT: EAC clear b/l. TM's intact b/l without erythema, fluid, or perforation. Nares patent and without discharge. oropharynx clear without exudates. No tonsilar hypertrophy or erythema. Moist mucous membranes. No sinus tenderness. Uvula midline. No palatine shift. No tongue protrusion. No respiratory compromise. Mouth: + small puncture noted inside left upper lip (superficial). Poor dentition. + mild decay and mild gingivitis. No obvious abscess or discharge noted. No facial swelling. No missing or loose teeth. No bony tenderness. NECK: Normal range of motion, supple without lymphadenopathy. No rigidity/meningismus. LUNGS: Breath sounds clear to auscultation bilaterally and equal. No wheezes rales or rhonchi. HEART: Regular rate and rhythm without murmurs, rubs, gallops. NEUROLOGICAL: Cranial nerves grossly intact. Normal speech, normal gait. Normal sensory, motor exams. NIH 0. GCS 15. PSYCH: Normal mood, normal affect. SKIN: Warm, Dry, normal turgor, no rashes or lesions noted. - INFECTION CONTROL TRAVEL OUTSIDE OF THE [place] IN LAST 30 DAYS: No Course - Re-evaluation Re-evalutation: 08/03/19 18:59 Patient is an afebrile, well-hydrated, 29-year-old male who presents with a lip injury, suspect benign. Vitals are acceptable without significant tachycardia, tachypnea, hypoxia. PE is otherwise unremarkable for any focal neurological deficits. Patient is nontoxic-appearing and is tolerating p.o. without difficulty. No labs or imaging warranted. Low suspicion for any fracture, meningitis, intracranial hemorrhage, ischemic stroke at this time. Patient is aware that his condition can change from initial presentation and that he needs to monitor symptoms closely for any acute changes. Recheck with your PCM next week. Return to the ED with any other worsening/concerning symptoms. Patient is in agreement. - Vital Signs Vital signs: Temp Pulse Resp BP Pulse Ox 98.3 F 82 16 159/100 H 100 08/03/19 18:51 08/03/19 18:51 08/03/19 18:51 08/03/19 18:51 08/03/19 18:51 Discharge - Discharge Clinical Impression: Injury of lip Qualifiers: Encounter type: initial encounter Qualified Code(s): S09.93XA - Unspecified injury of face, initial encounter Condition: Stable Disposition: HOME, SELF-CARE Additional Instructions: Edmond and floss twice daily Maintain fluid intake Mouthwash, salt water gargles/rinses Tylenol/ibuprofen as needed Recheck with PCM this week Return to the ED with any worsening symptoms and/or development of fever, headache, facial swelling, swelling of lips/tongue/throat, trouble swallowing, drooling, hoarseness, neck pain/stiffness, chest pain, palpitations, syncope, shortness of breath, trouble breathing, abdominal pain, n/v/d, numb ness/tingling, or other worsening symptoms that are concerning to you. Forms: Elevated Blood Pressure, Smoking Cessation Education, Return to Work Referrals: MARCIAL RIOS DDS [ACTIVE STAFF] - Follow up as needed
== END 2019-08-03 19:00 | disposition home or self-care (01) ==
LOC: ER 18:23
DX: S01.531A Puncture wound without foreign body of lip, initial encounter (principal); W50.0XXA Accidental hit or strike by another person, initial encounter; Y93.67 Activity, basketball; F17.200 Nicotine dependence, unspecified, uncomplicated
CPT/HCPCS: 99282

== ENCOUNTER 2020-04-08 15:23 | Emergency (ER) | payer SELFPAY ==
[2020-04-08 16:10] VITALS: BP 129/81
--- NOTE | 2020-04-08 17:06 | ER Document Report ---
HPI - HPI Time Seen by Provider: 04/08/20 16:42 Notes: 29-year-old male presents to the emergency room for complaints of swelling to his right jaw that he noticed today. Patient states that he believes that he had an ingrown hair that starting to get infected. Has not tried any [id number] medications. Worse with time, nothing makes better. States pain is 1 out of 5, throbbing. Denies any fevers or chills. patient states that he does not use a clean razor every time he shaves. Denies any pain with opening or closing his jaw, states that the redness is on the right posterior aspect of his jaw. denies fevers, chills, chest pain,palpitations, shortness of breath, dyspnea, nausea, vomiting, diarrhea, abdominal pain, hematuria,blurred vision, double vision, loss of vision, speech changes, LH, dizziness, syncope, headaches, wheezing, ST, URI, neck pain, weakness, bowel or bladder dysfunction, saddle anesthesia, numbness or tingling in bilateral upper or lower extremities equally, muscle paralysis, weakness in bilateral upper or lower extremities equally or rash. Denies IV drug use. MEDICATIONS: I agree with the patient medications as charted by the RN. ALLERGIES: I agree with the allergies as charted by the RN. PAST MEDICAL HISTORY/PAST SURGICAL HISTORY: Reviewed and agree as charted by RN. SOCIAL HISTORY: Reviewed and agree as charted by RN. FAMILY HISTORY: No significant familial comorbid conditions directly related to patient complaint EXAM: Reviewed vital signs as charted by RN. REVIEW OF SYSTEMS:reviewed vital signs by RN CONSTITUTIONAL : Denies fever, chills, or sweats. Denies recent illness. EENT: Denies eye, ear, throat, or mouth pain or symptoms. Denies nasal or sinus congestion or discharge. Denies throat, tongue, or mouth swelling or difficulty swallowing. CARDIOVASCULAR: Denies chest pain. Denies palpitations or racing or irregular heart beat. Denies ankle edema. RESPIRATORY: Denies cough, cold, or chest congestion. Denies shortness of breath, difficulty breathing, or wheezing. GASTROINTESTINAL: Denies abdominal pain or distention. Denies nausea, vomiting, or diarrhea. Denies blood in vomitus, stools, or per rectum. Denies black, tarry stools. Denies constipation. GENITOURINARY: Denies difficulty urinating, painful urination, burning, frequency, blood in urine, or discharge. MUSCULOSKELETAL: Denies back or neck pain or stiffness. Denies joint pain or swelling. SKIN: right jaw redness. Denies rash, lesions or sores. HEMATOLOGIC : Denies easy bruising or bleeding. LYMPHATIC: Denies swollen, enlarged glands. NEUROLOGICAL: Denies confusion or altered mental status. Denies passing out or loss of consciousness. Denies dizziness or lightheadedness. Denies headache. Denies weakness or paralysis or loss of use of either side. Denies problems with gait or speech. Denies sensory loss, numbness, or tingling. Denies seizures. PSYCHIATRIC: Denies anxiety or stress. Denies depression, suicidal ideation, or homicidal ideation. ALL OTHER SYSTEMS REVIEWED AND NEGATIVE. Dictation was performed using [employer] recognition software PHYSICAL EXAMINATION: GENERAL: Well-appearing, well-nourished and in no acute distress. HEAD: Atraumatic, normocephalic. EYES: Pupils equal round and reactive to light, extraocular movements intact, sclera anicteric, conjunctiva are normal. ENT: Nares patent, oropharynx clear without exudates. Moist mucous membranes. TM with effusion bilaterally, no erythema. TMs intact. ##31,20 gingiva with swelling, erythema and induration. No drainage or open wounds. No fluctuance. No facial swelling. Poor oral dentition, moderate jaw with several ental caries, no definite swelling or effusion. no trismus noted. Uvula is midline NECK: Normal range of motion, supple without lymphadenopathy LUNGS: Breath sounds clear to auscultation bilaterally and equal. No wheezes rales or rhonchi. HEART: Regular rate and rhythm without murmurs ABDOMEN: Soft, nontender, nondistended abdomen. No guarding, no rebound. No masses appreciated. Musculoskeletal: Normal range of motion, no pitting or edema. No cyanosis. NEUROLOGICAL: Cranial nerves grossly intact. Normal speech, normal gait. Normal sensory, motor exams PSYCH: Normal mood, normal affect. SKIN: Warm, Dry, normal turgor, no rashes or lesions noted. 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 IN LAST 30 DAYS: No Course - Re-evaluation Re-evalutation: 04/08/20 17:06 Afebrile vital stable no distress. Nurses notes reviewed. Discussed with patient that he needs to apply warm compress 20 minutes on 20 minutes off several times a day, use clean razors when shaving, also follow-up with a dentist for moderate dental caries. Take antibiotic as directed, make sure to take antibiotic with food. Follow-up with dentist and primary care provider in the next 24 to 48 hours. After performing a Medical Screening Examination, I estimate there is LOW risk for a DEEP SPACE INFECTION (e.g., LENY'S ANGINA OR RETROPHARYNGEAL ABSCESS), MENINGITIS, INTRACRANIAL HEMORRHAGE, or AIRWAY COMPROMISE, thus I consider the discharge disposition reasonable. Also, there is no evidence or peritonitis, sepsis, or toxicity. I have reevaluated this patient multiple times and no significant life threatening changes are noted. The patient and I have discussed the diagnosis and risks, and we agree with discharging home with close follow-up with the understanding that symptoms and presentations can change. We also discussed returning to the Emergency Department immediately if new or worsening symptoms occur. We have discussed the symptoms which are most concerning (e.g., changing or worsening pain, trouble swallowing or breathing, neck stiffness or fever) that necessitate immediate return. - Vital Signs Vital signs: Temp Pulse Resp BP Pulse Ox 98.1 F 69 16 129/81 H 96 04/08/20 16:08 04/08/20 16:08 04/08/20 16:08 04/08/20 16:08 04/08/20 16:08 Discharge - Discharge Clinical Impression: Facial cellulitis, Dental caries Condition: Stable Disposition: HOME, SELF-CARE Instructions: Cellulitis ([facility]), MRSA Cellulitis ([facility]), Dentist, [facility] Additional Instructions: The rash is likely due to infection of your skin. You need to take the antibiotics as prescribed. Do not stop even if the rash goes away until you have completed all the antibiotics. warm compress to skin 20 minutes on, 20 minutes off several times a day. You need to return to emergency department if the redness spreads outside of this area by more than 2 cm in any direction. You should also return if you develop fevers with temperature greater than 101, persistent vomiting, worsening pain, or have any other symptoms that are concerning to you. Return immediately for any new or worsening symptoms. Follow up with primary care provider, call tomorrow to make followup appointment. Prescriptions: Clindamycin HCl 300 mg PO Q6H #28 capsule Referrals: BETTYE BARNES MD [NO LOCAL MD] - Follow up as needed
== END 2020-04-08 16:54 | disposition home or self-care (01) ==
LOC: ER 15:23
DX: L03.211 Cellulitis of face (principal); K02.9 Dental caries, unspecified
CPT/HCPCS: 99283